=== PATIENT | male | born 1940 | race Caucasian/White ===

== ENCOUNTER → 2016-05-18 | Outpatient (CLI) | payer OTHER ==
[~2016-05-18] MED LIST: ACET-1311 PO; AMLO-114 PO; CARV6.252 PO; CITA10TA8 PO; FINA5TAB PO; LEVE500T13 PO; LISI5TAB PO; MULT-190 PO; PRLSR20 PO; SENN1TAB65 PO; SIMV20TA5 PO
== END ==
LOC: C.LABCC 07:58
PROVIDERS: ATTEND Internal Medicine
DX: G40.909 Epilepsy, unspecified, not intractable, without status epilepticus (principal)

== ENCOUNTER 2016-07-08 00:58 | Emergency (ER) | payer OTHER ==
[~2016-07-08] VITALS: Ht 157.5 cm; Wt 65.5 kg
--- NOTE | 2016-07-08 01:25 | EMERGENCY ROOM VISIT NOTE ---
History Report prepared by Rosanne: Sydney Gomez Under the Supervision of: Ofelia StrangeO. First contact with patient: 01:09 Chief Complaint: SEIZURE Stated Complaint: SEIZURE History of Present Illness The patient is a 76 year old male who presents to the Emergency Room with complaints of an episode of a seizure beginning just [employer]. The patient states that he was going to the bathroom at [facility] and when he went to sit down he fell down. Per nursing staff the patient has a history of seizures and dementia. He complains of nose pain. HPI limited secondary to dementia. Source of History: patient, nursing staff History Limited By: dementia Onset: just [employer] Position: other (global) Quality: other (seizure) Timing: other (episode) Note: Pt complains of nose pain. Review of Systems See HPI for pertinent positives and negatives. ROS limited secondary to dementia. Past Medical & Surgical Medical Problems: (1) Dementia (2) Seizure Family History No pertinent family history stated. Social History Alcohol Use: none Housing Status: [facility] Occupation Status: retired Current/Historical Medications Scheduled Amlodipine (Norvasc), 10 MG PO DAILY Carvedilol (Coreg), 6.25 MG PO BID Citalopram Hydrobromide (Celexa), 10 MG PO DAILY Finasteride (Proscar), 5 MG PO DAILY Levetiracetam (Keppra), 500 MG PO BID Lisinopril (Prinivil), 5 MG PO DAILY Ocuvite Preservision (Ocuvite Preservision), 1 TAB PO DAILY Omeprazole (Prilosec), 20 MG PO DAILY Sennosides-Docusate Sodium (Senna Plus), 2 TABS PO BID Simvastatin (Zocor), 20 MG PO QPM Scheduled PRN Acetaminophen (Tylenol), 650 MG PO Q6 PRN for Pain Allergies Coded Allergies: No Known Allergies (Unverified , 07/08/16) Physical Exam Vital Signs Date Time Temp Pulse Resp B/P Pulse Ox O2 Delivery O2 Flow Rate FiO2 07/08/16 02:32 95 19 152/72 98 Room Air 07/08/16 01:51 97 Room Air 07/08/16 01:48 36.3 79 20 150/91 97 Room Air 07/08/16 01:24 36.3 79 20 150/91 97 Room Air 07/08/16 01:10 69 Physical Exam GENERAL: Awake, alert, well-appearing, in no distress HENT: Oropharynx unremarkable. Mild tenderness to the nasal bridge with dried blood in the nasopharynx bilaterally. EYES: Normal conjunctiva. Sclera non-icteric. NECK: Supple. No nuchal rigidity. FROM. No JVD. Nontender. RESPIRATORY: Clear to auscultation. CARDIAC: Regular rate, normal rhythm. Extremities warm and well perfused. Pulses equal. ABDOMEN: Soft, non-distended. No tenderness to palpation. No rebound or guarding. No masses. RECTAL: Deferred. MUSCULOSKELETAL: Chest examination reveals no tenderness. The back is symmetrical on inspection without obvious abnormality. There is no CVA tenderness to palpation. No joint edema. LOWER EXTREMITIES: Calves are equal size bilaterally and non-tender. No edema. No discoloration. NEURO: Normal sensorium. No sensory or motor deficits noted. Alert but demented. SKIN: No rash or jaundice noted. Small superficial laceration measuring 1cm on the left thumb. Medical Decision & Procedures ER Provider Diagnostic Interpretation: Radiology results as stated below per my review and radiologist interpretation CT HEAD: No ICH, Mass effect, or midline shift. Large zone of encephalomalacia involving the right temporal and parietal lobe is compatible with chronic right MCA territory infarct. Blanco-white differentiation otherwise preserved. There is ex vacuo enlargement of the right lateral ventricle. There is intracranial atherosclerosis. There is no evidence of skull fracture. There are acute traumatic fractures through the anterior and posterior miller of the left maxillary sinus. There is a fracture through the left zygomatic arch, acuity indeterminate. The left maxillary sinus is filled with blood. There is mucosal thickening in the ethmoid air cells. The mastoid air cells are clear. CT C SPINE: There is severe spondylosis of the cervical spine. There is normal lordosis. Vertebral body heights are maintained. There is no evidence of acute fracture or subluxation. There is severe degenerative change at the anterior C1-C2 articulation with regional chondrocalcinosis. There is moderate to severe degenerative disc disease from C3 through the upper thoracic spine with disc height loss, degenerative endplate changes, and anterior and posterior endplate osteophytes. There is multilevel facet arthrosis and uncovertebral joint hypertrophy. Facet arthropathy is greater on the right side due to levoconvex curvature of the vertical spine. There is anterolisthesis of C3 measuring 3mm and anterolisthesis of C4 measuring 3mm. There is degenerative ankylosis of C6 and C7 across the disc space. There is no prevertebral soft tissue swelling. Hypoattenuating nodules are noted in the thyroid. The lung apices are clear. Laboratory Results 07/08/16 01:00 Red Blood Count 4.41, Mean Corpuscular Volume 85.7, Mean Corpuscular Hemoglobin 27.9, Mean Corpuscular Hemoglobin Concent 32.5, Mean Platelet Volume 11.4, Neutrophils (%) (Auto) 72.4, Lymphocytes (%) (Auto) 14.9, Monocytes (%) (Auto) 10.8, Eosinophils (%) (Auto) 1.3, Basophils (%) (Auto) 0.3, Neutrophils # (Auto ) 5.10, Lymphocytes # (Auto) 1.05, Monocytes # (Auto) 0.76, Eosinophils # (Auto ) 0.09, Basophils # (Auto) 0.02 07/08/16 01:00 Test 07/08/16 01:00 07/08/16 01:34 07/08/16 01:36 White Blood Count 7.04 K/uL (4.8-10.8) Red Blood Count 4.41 M/uL (4.7-6.1) Hemoglobin 12.3 g/dL (14.0-18.0) Hematocrit 37.8 % (42-52) Mean Corpuscular Volume 85.7 fL (80-100) Mean Corpuscular Hemoglobin 27.9 pg (25-34) Mean Corpuscular Hemoglobin Concent 32.5 g/dl (32-36) Platelet Count 214 K/uL (130-400) Mean Platelet Volume 11.4 fL (7.4-10.4) Neutrophils (%) (Auto) 72.4 % Lymphocytes (%) (Auto) 14.9 % Monocytes (%) (Auto) 10.8 % Eosinophils (%) (Auto) 1.3 % Basophils (%) (Auto) 0.3 % Neutrophils # (Auto) 5.10 K/uL (1.4-6.5) Lymphocytes # (Auto) 1.05 K/uL (1.2-3.4) Monocytes # (Auto) 0.76 K/uL (0.11-0.59) Eosinophils # (Auto) 0.09 K/uL (0-0.5) Basophils # (Auto) 0.02 K/uL (0-0.2) RDW Standard Deviation 46.7 fL (36.4-46.3) RDW Coefficient of Variation 14.9 % (11.5-14.5) Immature Granulocyte % (Auto) 0.3 % Immature Granulocyte # (Auto) 0.02 K/uL (0.00-0.02) Prothrombin Time 10.0 SECONDS (9.0-12.0) Prothromb Time International Ratio 0.9 (0.9-1.1) Activated Partial Thromboplast Time 22.1 SECONDS (21.0-31.0) Partial Thromboplastin Ratio 0.9 Anion Gap 7.0 mmol/L (3-11) Estimated GFR () 61.4 Estimated GFR (Non- 53.0 BUN/Creatinine Ratio 20.0 (10-20) Calcium Level 10.2 mg/dl (8.5-10.1) Magnesium Level 2.4 mg/dl (1.8-2.4) Bedside Glucose 116 mg/dl (70-99) Bedside Troponin I 0.010 ng/ml (0-0.045) Laboratory results reviewed by me Procedure Location: left thumb Total length: 1cm Complexity: simple Superficial 1cm thumb laceration was repaired using Dermabond. Patient tolerated procedure well. ECG Indication: other (seizure) Rate (beats per minute): 65 Rhythm: normal sinus Findings: T-wave inversion (Lateral), other (Nonspecific ST wave changes in precordium) ED Course 0109: The patient was evaluated in room B2. A complete history and physical exam was performed. 0231: I reevaluated the patient. He is resting and in no distress. He is non- focal. 0243: I reevaluated the patient. Discussed results and discharge instructions: He verbalized understanding and agreement. The patient is ready for discharge. Medical Decision Differential diagnoses include seizure, closed head injury, nasal bone fracture , metabolic derangement, skin laceration, early dementia. Repeat examination this patient is resting in no distress at 2:40 AM. Patient had Dermabond placed to the left thumb superficial laceration. Patient has no evidence of seizure throughout emergency department evaluation and no obvious intracranial process on CT. Impression Primary Impression: Closed head injury Additional Impressions: Laceration of thumb, left Dementia Scribe Attestation The scribe's documentation has been prepared under my direction and personally reviewed by me in its entirety. I confirm that the note above accurately reflects all work, treatment, procedures, and medical decision making performed by me. Departure Information Dispostion Home / Self-Care Referrals [facility] (PCP) Patient Instructions ED Head Injury Closed, ED Laceration All, My [facility] Additional Instructions Follow-up with your physician. Return for any seizure activity or any concerns. Problem Qualifiers Primary Impression: Closed head injury Encounter type: initial encounter Qualified Codes: S09.90XA - Unspecified injury of head, initial encounter Additional Impressions: Laceration of thumb, left Encounter type: initial encounter Qualified Codes: S61.012A - Laceration without foreign body of left thumb without damage to nail, initial encounter Dementia Dementia type: unspecified type Dementia behavioral disturbance: without behavioral disturbance Qualified Codes: F03.90 - Unspecified dementia without behavioral disturbance
[2016-07-08 01:38] LABS: BASO % 0.3 %; BASO ABS # 0.02 K/uL (0-0.2); COMPLETE YES; EOS % 1.3 %; HEMATOCRIT 37.8 % (42-52); IG% 0.3 %; LYMPH % 14.9 %; LYMPH ABS # 1.05 K/uL (1.2-3.4); MEAN CELL VOLUME 85.7 fL (80-100); MEAN CORPUSCULAR HEMOGLOBIN 27.9 pg (25-34); MEAN CORPUSCULAR HGB CONC 32.5 g/dl (32-36); MEAN PLATELET VOLUME 11.4 fL (7.4-10.4); MONO % 10.8 %; NEUT % 72.4 %; PLATELET COUNT 214 K/uL (130-400); RED BLOOD COUNT 4.41 M/uL (4.7-6.1); WHITE BLOOD COUNT 7.04 K/uL (4.8-10.8)
[2016-07-08 01:47] LABS: BLOOD UREA NITROGEN 26 mg/dl (7-18); CALCIUM 10.2 mg/dl (8.5-10.1); CARBON DIOXIDE 25 mmol/L (21-32); CHLORIDE 110 mmol/L (98-107); GLUCOSE 120 mg/dl (70-99); MAGNESIUM 2.4 mg/dl (1.8-2.4); POTASSIUM 4.5 mmol/L (3.5-5.1); SODIUM 142 mmol/L (136-145)
[2016-07-08 01:48] VITALS: TEMP 36.3; Ht 157.5 cm; Wt 65.5 kg
[2016-07-08 01:49] LABS: INR 0.9 (0.9-1.1); PARTIAL THROMBOPLASTIN RATIO 0.9
[2016-07-08 01:51] VITALS: O2SAT 97
[2016-07-08] MEDS ORDERED: AMLO-114 PO (02:00)
[2016-07-08] MEDS ORDERED: CARV6.252 PO (02:01)
[2016-07-08] MEDS ORDERED: CITA10TA8 PO (02:01)
[2016-07-08] MEDS ORDERED: LISI5TAB PO (02:02)
[2016-07-08] MEDS ORDERED: PRLSR20 PO (02:02)
[2016-07-08] MEDS ORDERED: LEVE500T13 PO (02:05)
[2016-07-08] MEDS ORDERED: FINA5TAB PO (02:05)
[2016-07-08] MEDS ORDERED: SIMV20TA5 PO (02:08)
[2016-07-08] MEDS ORDERED: MULT-190 PO (02:08)
[2016-07-08] MEDS ORDERED: SENN1TAB65 PO (02:08)
[2016-07-08] MEDS ORDERED: ACET-1311 PO (02:09)
[2016-07-08 02:32] VITALS: BP 152/72; PULSE 95; O2SAT 98
--- NOTE | 2016-07-08 06:55 | DIAGNOSTIC IMAGING REPORT ---
HEAD CT NONCONTRAST CT DOSE: HISTORY: Trauma seizure, head trauma TECHNIQUE: Multiaxial CT images of the head were performed without the use of intravenous contrast. Comparison: 11/06/2012 Findings: Fracture anterior and posterior aspect left maxillary sinus. Possible fracture left zygomatic arch and medial wall left maxillary sinus. Old right cerebral infarct. Mild chronic small vessel change of aging. No acute intracranial hemorrhage. The calvarium and skull base are intact. The ventricles and sulci are within normal limits. There is no mass, hematoma, midline shift, or acute infarct. Impression: 1. Old right cerebral infarct. 2. No acute intracranial abnormality. 3. Multifocal fracture left maxillary sinus as well as left zygomatic arch Electronically signed by: Arvin Slater M.D. 07/08/2016 6:53 AM Dictated Date/Time: 07/08/2016 6:48 AM
--- NOTE | 2016-07-08 08:05 | DIAGNOSTIC IMAGING REPORT ---
CERVICAL SPINE CT CT DOSE: 1119.95 mGy.cm HISTORY: Trauma trauma after [facility] TECHNIQUE: Multiaxial CT images of the cervical spine were performed and reformatted in the sagittal and coronal plane without the use of contrast. COMPARISON: None. FINDINGS: Severe degenerative change throughout the entire cervical region. Mild cervical scoliosis. No evidence for an acute compression deformity. No acute abnormality posterior arch. His note is made fractures of the left maxillary sinus region. IMPRESSION: Severe degenerative change of the cervical spine. No acute process. Fractures left maxillary sinus/facial region which have been described previously. CT of the maxillofacial region is suggested if this has not been performed Electronically signed by: Arvin Slater M.D. 07/08/2016 8:03 AM Dictated Date/Time: 07/08/2016 8:00 AM
== END 2016-07-08 03:10 | disposition home or self-care (01) ==
LOC: EDBD 00:58 → C.EDB 01:00
DX: S09.90XA Unspecified injury of head, initial encounter (principal); S61.012A Laceration without foreign body of left thumb without damage to nail, initial encounter; W19.XXXA Unspecified fall, initial encounter; G40.909 Epilepsy, unspecified, not intractable, without status epilepticus; F03.90 Unspecified dementia, unspecified severity, without behavioral disturbance, psychotic disturbance, mood disturbance, and anxiety; Z79.899 Other long term (current) drug therapy

== ENCOUNTER → 2016-08-23 | Outpatient (CLI) | payer OTHER ==
[2016-08-23 08:18] LABS: HEMATOCRIT 38.1 % (42-52); MEAN CELL VOLUME 88.6 fL (80-100); MEAN CORPUSCULAR HEMOGLOBIN 28.1 pg (25-34); MEAN CORPUSCULAR HGB CONC 31.8 g/dl (32-36); MEAN PLATELET VOLUME 11.9 fL (7.4-10.4); PLATELET COUNT 232 K/uL (130-400); WHITE BLOOD COUNT 5.64 K/uL (4.8-10.8)
[2016-08-23 08:28] LABS: ALB/GLOB RATIO 0.9 (0.9-2); ALT/SGPT 28 U/L (12-78); BLOOD UREA NITROGEN 19 mg/dl (7-18); BUN/CREATININE RATIO 20.5 (10-20); CARBON DIOXIDE 22 mmol/L (21-32); CHLORIDE 110 mmol/L (98-107); CHOLESTEROL 138 mg/dl (0-200); CHOLESTEROL/HDL RATIO 3.5; CREATININE 0.94 mg/dl (0.60-1.40); GLUCOSE 99 mg/dl (70-99); HDL CHOLESTEROL 40 mg/dl; LDL CHOLESTEROL CALCULATED 64 mg/dl; POTASSIUM 4.4 mmol/L (3.5-5.1); SODIUM 142 mmol/L (136-145); TRIGLYCERIDES 171 mg/dl (0-150); VERY LOW DENSITY LIPOPROT CALC 34 mg/dl
[2016-08-23 08:38] LABS: ALKALINE PHOSPHATASE 105 U/L (45-117); AST/SGOT 20 U/L (15-37)
[2016-08-23 08:39] LABS: CALCIUM 10.9 mg/dl (8.5-10.1)
== END ==
LOC: C.LABCC 08:00
PROVIDERS: ATTEND Internal Medicine
DX: E78.5 Hyperlipidemia, unspecified (principal); I10 Essential (primary) hypertension; R56.9 Unspecified convulsions

== ENCOUNTER → 2016-10-20 | Outpatient (CLI) | payer OTHER | LOC: C.LABCC 07:52 | PROVIDERS: ATTEND Internal Medicine | DX: G40.909 Epilepsy, unspecified, not intractable, without status epilepticus (principal) ==

== ENCOUNTER → 2016-11-03 | Outpatient (CLI) | payer OTHER | LOC: C.LABCC 08:04 | PROVIDERS: ATTEND Internal Medicine | DX: G40.909 Epilepsy, unspecified, not intractable, without status epilepticus (principal) ==

== ENCOUNTER → 2016-12-24 | Outpatient (CLI) | payer OTHER ==
[2016-12-24 08:30] LABS: BASO % 0.6 %; BASO ABS # 0.04 K/uL (0-0.2); COMPLETE YES; EOS % 1.3 %; HEMATOCRIT 39.7 % (42-52); IG% 0.1 %; LYMPH % 13.5 %; LYMPH ABS # 0.97 K/uL (1.2-3.4); MEAN CELL VOLUME 88.6 fL (80-100); MEAN CORPUSCULAR HEMOGLOBIN 26.6 pg (25-34); MEAN PLATELET VOLUME 11.7 fL (7.4-10.4); MONO % 11.4 %; NEUT % 73.1 %; PLATELET COUNT 257 K/uL (130-400); RED BLOOD COUNT 4.48 M/uL (4.7-6.1)
[2016-12-24 08:39] LABS: ALT/SGPT 23 U/L (12-78); BLOOD UREA NITROGEN 20 mg/dl (7-18); BUN/CREATININE RATIO 20.2 (10-20); CALCIUM 10.8 mg/dl (8.5-10.1); CARBON DIOXIDE 22 mmol/L (21-32); CHLORIDE 111 mmol/L (98-107); GLUCOSE 98 mg/dl (70-99); POTASSIUM 4.7 mmol/L (3.5-5.1); SODIUM 141 mmol/L (136-145)
[2016-12-24 08:50] LABS: ALB/GLOB RATIO 0.8 (0.9-2); ALKALINE PHOSPHATASE 111 U/L (45-117); AST/SGOT 16 U/L (15-37)
== END ==
LOC: C.LABCC 08:07
PROVIDERS: ATTEND Internal Medicine
DX: R41.82 Altered mental status, unspecified (principal)

== ENCOUNTER → 2017-02-08 | Outpatient (CLI) | payer OTHER ==
[2017-02-08 08:01] LABS: BASO % 0.6 %; BASO ABS # 0.04 K/uL (0-0.2); COMPLETE YES; EOS % 1.1 %; HEMATOCRIT 39.4 % (42-52); IG% 0.1 %; LYMPH % 11.8 %; LYMPH ABS # 0.82 K/uL (1.2-3.4); MEAN CELL VOLUME 88.3 fL (80-100); MEAN CORPUSCULAR HEMOGLOBIN 26.7 pg (25-34); MEAN CORPUSCULAR HGB CONC 30.2 g/dl (32-36); MEAN PLATELET VOLUME 11.8 fL (7.4-10.4); MONO % 10.5 %; NEUT % 75.9 %; PLATELET COUNT 246 K/uL (130-400); RED BLOOD COUNT 4.46 M/uL (4.7-6.1); WHITE BLOOD COUNT 6.97 K/uL (4.8-10.8)
[2017-02-08 08:07] LABS: ALT/SGPT 22 U/L (12-78); AST/SGOT 14 U/L (15-37); BLOOD UREA NITROGEN 25 mg/dl (7-18); BUN/CREATININE RATIO 21.7 (10-20); CALCIUM 10.6 mg/dl (8.5-10.1); CARBON DIOXIDE 22 mmol/L (21-32); CHLORIDE 109 mmol/L (98-107); CREATININE 1.15 mg/dl (0.60-1.40); GLUCOSE 134 mg/dl (70-99); POTASSIUM 4.7 mmol/L (3.5-5.1); SODIUM 138 mmol/L (136-145)
[2017-02-08 08:17] LABS: ALB/GLOB RATIO 0.9 (0.9-2); ALKALINE PHOSPHATASE 110 U/L (45-117)
== END ==
LOC: C.LABCC 07:42
PROVIDERS: ATTEND Internal Medicine
DX: R56.9 Unspecified convulsions (principal); W19.XXXA Unspecified fall, initial encounter

== ENCOUNTER 2017-04-21 05:33 | Emergency (ER) | payer OTHER ==
[~2017-04-21 05:33] MED LIST changes: -AMLO-110 PO; -AMLO-114 PO; +AMLO10TA3 PO; -CHOL2000 PO; -LEVE250T PO; -TRAM-10 PO
[2017-04-21 05:37] VITALS: TEMP 36.3
[2017-04-21] MEDS ORDERED: AMLO5TAB3 PO (06:00)
--- NOTE | 2017-04-21 06:01 | EMERGENCY ROOM VISIT NOTE ---
History First contact with patient: 05:40 Chief Complaint: FALL Stated Complaint: FALL/SHOULDER PAIN History of Present Illness The patient is a 77 year old male who presents to the Emergency Room for evaluation of left shoulder pain after a fall. The patient is a resident at [facility] in the dementia unit. The patient reportedly fell 3 hours prior to arrival. Following that, the patient was complaining that he was not able to move his left arm. He is now complaining of left shoulder pain. He has no further complaints. History is significantly limited due to patient's dementia. Review of Systems A complete 10 point review of systems was reviewed with the patient with pertinent positives and negatives as per history of present illness. All else were negative. Past Medical/Surgical History Medical Problems: (1) Dementia (2) Seizure Social History Smoking Status: Never Smoker Alcohol Use: none Housing Status: [facility] Occupation Status: retired Current/Historical Medications Scheduled Amlodipine (Norvasc), 5 MG PO DAILY Carvedilol (Coreg), 6.25 MG PO BID Cholecalciferol (Vitamin D3), 2,000 UNITS PO DAILY Citalopram Hydrobromide (Celexa), 10 MG PO QPM Finasteride (Proscar), 5 MG PO QAM Levetiracetam (Keppra), 500 MG PO BID Levetiracetam (Keppra), 250 MG PO DAILY@ 1230 Lisinopril (Prinivil), 5 MG PO DAILY Ocuvite Preservision (Ocuvite Preservision), 1 TAB PO DAILY Omeprazole (Prilosec), 20 MG PO DAILY Sennosides-Docusate Sodium (Senna Plus), 2 TABS PO BID Simvastatin (Zocor), 20 MG PO QPM Scheduled PRN Acetaminophen (Tylenol), 650 MG PO Q6 PRN for Pain Physical Exam Vital Signs Date Time Temp Pulse Resp B/P (MAP) Pulse Ox O2 Delivery O2 Flow Rate FiO2 04/21/17 07:55 80 18 162/74 04/21/17 06:15 71 18 135/76 99 Room Air 04/21/17 05:37 36.3 70 18 140/73 98 Room Air Physical Exam VITALS: Vitals are noted on the nurse's note and reviewed by myself. Vital signs stable. GENERAL: This is a 77-year-old male, in no acute distress, nondiaphoretic, well- developed well-nourished. SKIN: The skin was without erythema, edema, or bruising. HEAD: Normocephalic atraumatic. EARS: External auditory canals clear, tympanic membranes pearly vazquez without erythema or effusion bilaterally. No hemotympanum. EYES: Pupils equal round and reactive to light and accommodation. Extraocular movements intact. NECK: Supple without nuchal rigidity. Cervical spine is nontender. HEART: Regular rate and rhythm without murmurs gallops or rubs. LUNGS: Clear to auscultation bilaterally without wheezes, rales or rhonchi. MUSCULOSKELETAL: Tenderness to palpation of the proximal humerus. Limited range of motion secondary to patient discomfort. No tenderness of the elbow, forearm or wrist. No tenderness of the distal clavicle. NEURO: Patient was alert and oriented to person only. Medical Decision & Procedures ER Provider Diagnostic Interpretation: CT HEAD: No evidence of acute infarct, hemorrhage, mass or edema. Remote infarct within the right MCA territory. Chronic small vessel ischemic disease and senescent changes. Minimal mucosal thickening of the paranasal sinuses. No acute osseous abnormality. Radiologist: Clya Valle MD CT C SPINE: Multilevel degenerative changes. No acute fracture or traumatic malalignment. Radiologist: Clay Valle MD CT LEFT SHOULDER: Acute impacted fracture of the left humeral neck. The humeral head remains articulate within the glenoid. There is marked degenerative changes. No other fracture identified. Radiologist: Clay Valle MD Medical Decision Differential diagnosis includes humerus fracture, clavicle fracture, shoulder dislocation, among others. The patient was evaluated as above. CT of the head, neck and left shoulder were performed and read by statrad and reveal a fracture of the left humerus as described above. CTs of the head and neck were normal. Patient was placed in an arm sling. He will follow-up with orthopedics. He was discharged back to [facility] in good condition. The patient was independently evaluated by Dr. Lopez, ED attending physician, who agreed with my assessment and treatment plan. Medication Reconcilliation Current Medication List: was personally reviewed by me Blood Pressure Screening Patient's blood pressure: Normal blood pressure Impression Primary Impression: Closed left humeral fracture Departure Information Dispostion Home / Self-Care Condition GOOD Referrals [facility] (PCP) Bala Coleman MD Patient Instructions [facility] Additional Instructions You have been treated in the Emergency Department for a Shoulder fracture. For pain control, you can use the following [id number] medicines (if >12 yo): - Regular strength (325mg/tab) Tylenol (acetaminophen) 2 tabs every 4-6 hours as needed. Do not exceed 12 tablets in a 24 hour period. Avoid taking more than 4 grams (4000 mg) of Tylenol per day. This includes any other sources of acetaminophen you may take on a regular basis. - Regular strength (200 mg/tab) Advil (ibuprofen) 1-2 tabs every 4-6 hours as needed. Do not exceed a dose of 3200 mg per day. If this is a recent injury (<24 hrs), ice can be applied to the area of pain for the first 3 days to help decrease pain and inflammation. You have been provided the number for an Orthopaedic Surgeon. You should call this number as soon as possible to establish a follow-up visit from today's Emergency Department visit. Return to the Emergency Department if your current symptoms worsen despite treatment course outlined above, or if you develop any of the following symptoms : intractable pain despite aforementioned treatment course or new onset of numbness or tingling of the arm. Problem Qualifiers Primary Impression: Closed left humeral fracture Encounter type: initial encounter
[2017-04-21] MEDS ORDERED: CARV6.252 PO (06:02)
[2017-04-21] MEDS ORDERED: LEVE250T PO (06:06)
[2017-04-21] MEDS ORDERED: CHOL2000 PO (06:12)
[2017-04-21 06:15] VITALS: O2SAT 99
--- NOTE | 2017-04-21 07:13 | DIAGNOSTIC IMAGING REPORT ---
HEAD CT NONCONTRAST CT DOSE: HISTORY: fall TECHNIQUE: Multiaxial CT images of the head were performed without the use of intravenous contrast. Automated exposure control was utilized for this study. A dose lowering technique was utilized adhering to the principles of ALARA. Comparison: Head CT 07/08/2016. Findings: The paranasal sinuses and mastoid air cells are clear. The calvarium and skull base are intact. There is no mass, hematoma, midline shift, acute infarct. White matter hypodensity is nonspecific but suggestive of microvascular ischemic change. The ventricles and sulci demonstrate mild age-related involutional changes. Old right MCA territory infarct. This remains unchanged. Impression: No significant change compared to the prior study. No acute intracranial abnormality. Electronically signed by: Fernie Schofield M.D. 04/21/2017 7:12 AM Dictated Date/Time: 04/21/2017 7:07 AM
--- NOTE | 2017-04-21 07:17 | DIAGNOSTIC IMAGING REPORT ---
CERVICAL SPINE CT CT DOSE: 1106.69 mGy.cm HISTORY: Neck pain. fall TECHNIQUE: Multiaxial CT images of the cervical spine were performed and reformatted in the sagittal and coronal plane without the use of contrast. A dose lowering technique was utilized adhering to the principles of ALARA. COMPARISON: None. FINDINGS: No fractures within the cervical spine. 2 mm of anterolisthesis of C3 on C4 and C4-C5. This is likely due to long-standing degenerative change. Moderate to severe degenerative disc disease and facet osteoarthritis throughout the majority of the cervical spine. Levoscoliosis. No pneumothorax. IMPRESSION: No fractures within the cervical spine. Advanced degenerative changes. Electronically signed by: Fernie Schofield M.D. 04/21/2017 7:16 AM Dictated Date/Time: 04/21/2017 7:12 AM
--- NOTE | 2017-04-21 07:23 | EMERGENCY ROOM VISIT NOTE ---
ED Visit Note First contact with patient: 05:40 I saw this patient in conjunction with Milka Wheeler PA-C. I agree with her decision making and treatment plan.
--- NOTE | 2017-04-21 07:44 | DIAGNOSTIC IMAGING REPORT ---
CT OF THE LEFT SHOULDER WITHOUT CONTRAST CLINICAL HISTORY: Left shoulder pain following fall. COMPARISON STUDY: No previous studies for comparison. TECHNIQUE: Axial images of the left shoulder obtained without IV contrast. Sagittal and coronal reconstructions were viewed. FINDINGS: Alignment of the left acromioclavicular and glenohumeral joints is anatomic. Joint space narrowing with osteophytosis of the left glenohumeral joint is noted. There is subchondral sclerosis. The findings are consistent with severe osteoarthritis of the left glenohumeral joint. There is a markedly comminuted, moderately displaced impacted left humeral neck fracture which extends into the left humeral head. No additional acute fractures are identified on this examination. There is associated edema and hemorrhage within the adjacent musculature. There is mild groundglass opacity within visualized portions of the left upper lobe. Old left-sided rib fractures are noted. There is no left pneumothorax. IMPRESSION: Acute moderately displaced markedly comminuted impacted left humeral neck fracture which extends into the left humeral head. Anatomic alignment of left glenohumeral joint with severe osteoarthritis. Associated soft tissue/intramuscular edema and hemorrhage. Electronically signed by: Kale Alexander M.D. 04/21/2017 7:42 AM Dictated Date/Time: 04/21/2017 7:37 AM
[2017-04-21 07:55] VITALS: BP 162/74; PULSE 80
[2017-04-22] MEDS ORDERED: TRAM-10 PO (13:25)
[2017-04-23] MEDS ORDERED: ACET-1311 PO (15:12)
== END 2017-04-21 08:32 | disposition home or self-care (01) ==
LOC: EDBD 05:33 → C.EDA 05:37
DX: S42.302A Unspecified fracture of shaft of humerus, left arm, initial encounter for closed fracture (principal); W19.XXXA Unspecified fall, initial encounter; Y92.129 Unspecified place in nursing home as the place of occurrence of the external cause; F03.90 Unspecified dementia, unspecified severity, without behavioral disturbance, psychotic disturbance, mood disturbance, and anxiety; G40.909 Epilepsy, unspecified, not intractable, without status epilepticus; Z79.899 Other long term (current) drug therapy

== ENCOUNTER → 2017-04-21 | Outpatient (CLI) | payer OTHER ==
[~2017-04-21] MED LIST changes: +AMLO-110 PO; +CHOL2000 PO; +LEVE250T PO; +TRAM-10 PO
== END | disposition home or self-care (01) ==
LOC: C.RDSM 13:50
PROVIDERS: ATTEND Orthopaedic Surgery
DX: T14.8XXA Other injury of unspecified body region, initial encounter (principal); X58.XXXA Exposure to other specified factors, initial encounter

== ENCOUNTER 2017-04-22 12:42 | Inpatient (IN) | payer OTHER ==
[~2017-04-22] VITALS: Ht 167.6 cm; Wt 80.5 kg
[~2017-04-22 12:42] MED LIST changes: -AMLO10TA3 PO; +AMLO5TAB3 PO; +CHOL2000 PO; +LEVE250T PO
--- NOTE | 2017-04-22 13:16 | EMERGENCY ROOM VISIT NOTE ---
History Report prepared by Rosanne: Ophelia Bullock Under the Supervision of: Dr. Gio Grossman D.O. First contact with patient: 12:55 Chief Complaint: ALTERED MENTAL STATUS Stated Complaint: AMS History of Present Illness The patient is a 77 year old male who presents to the Emergency Room with complaints of a persistent altered mental status. The patient was seen at the Emergency Department yesterday for shoulder pain, secondary to a fall. HPI limited due to a history of dementia and AMS. Source of History: patient, transfer records History Limited By: AMS, dementia Position: other (global) Quality: other (AMS) Timing: other (persistent) Review of Systems See HPI for pertinent positives & negatives. A total of 10 systems reviewed and were otherwise negative. Past Medical & Surgical Medical Problems: (1) Dementia (2) Seizure Family History Patient reports no known family medical history. Social History Smoking Status: Unknown if Ever Smoked Alcohol Use: none Housing Status: custodial Occupation Status: retired Current/Historical Medications Scheduled Amlodipine (Norvasc), 5 MG PO DAILY Carvedilol (Coreg), 6.25 MG PO BID Cholecalciferol (Vitamin D3), 2,000 UNITS PO DAILY Citalopram Hydrobromide (Celexa), 10 MG PO QPM Finasteride (Proscar), 5 MG PO QAM Levetiracetam (Keppra), 500 MG PO BID Levetiracetam (Keppra), 250 MG PO DAILY@ 1230 Lisinopril (Prinivil), 5 MG PO DAILY Ocuvite Preservision (Ocuvite Preservision), 1 TAB PO DAILY Omeprazole (Prilosec), 20 MG PO DAILY Sennosides-Docusate Sodium (Senna Plus), 2 TABS PO BID Simvastatin (Zocor), 20 MG PO QPM Scheduled PRN Acetaminophen (Tylenol), 650 MG PO Q6 PRN for Pain Tramadol (Ultram), 1-2 TAB PO Q6 PRN for Pain Allergies Coded Allergies: No Known Allergies (Unverified , 04/22/17) Physical Exam Vital Signs Date Time Temp Pulse Resp B/P (MAP) Pulse Ox O2 Delivery O2 Flow Rate FiO2 04/22/17 13:47 77 111/56 78 107/72 04/22/17 13:11 94 Room Air 04/22/17 13:11 94 Room Air 04/22/17 12:56 36.7 75 23 103/66 96 Room Air 04/22/17 12:49 75 Physical Exam GENERAL: Listless response to verbal commands, does not appear discomfortable.Patient is awake, alert, and in no acute distress. EYES: The conjunctivae are clear. The pupils are round and reactive. EARS, NOSE, MOUTH AND THROAT: The nose is without any evidence of any deformity. Mucous membranes are moist tongue is midline NECK: The neck is nontender and supple. RESPIRATORY: Normal respiratory effort is noted there is no evidence of wheezing rhonchi or rales CARDIOVASCULAR: Regular rate and rhythm noted there no murmurs rubs or gallops normal S1 normal S2 GASTROINTESTINAL: Mildly distended, but soft. No guarding or rigidity. Bowel sounds are present in all quadrants. Abdomen is nontender PELVIS: The Pelvis is stable. No tenderness to palpation is noted. BACK: No midline tenderness or or step-off noted range of motion in flexion extension as well as rotation no signs of muscle spasm noted MUSCULOSKELETAL/EXTREMITIES: No deformities or pain with testing of LE. Significant swelling and ecchymosis of left arm consistent with recent injury. Pedal edema bilaterally. There is no evidence of gross deformity full range of motion is noted in the hips and shoulders SKIN: There is no obvious evidence of any rash. There are no petechiae, pallor or cyanosis noted. NEUROLOGIC: Patient is awake alert and oriented but not of time and situation. Medical Decision & Procedures ER Provider Diagnostic Interpretation: Radiology results as stated below per my review and radiologist interpretation: SINGLE VIEW CHEST CLINICAL HISTORY: Weakness. Change in mental status. FINDINGS: An AP, portable, upright chest radiograph is obtained. No prior studies are available for comparison at the time of dictation. The examination is degraded by portable technique and patient rotation. The heart is enlarged. The pulmonary vasculature is noncongested. There are low lung volumes with bibasilar atelectasis. The lungs and pleural spaces are otherwise clear. No pneumothorax is seen. The skeletal structures are osteopenic. Advanced arthritic change is present in the shoulders. There is an impacted left humeral neck fracture. There are healed right posterior rib fractures. IMPRESSION: 1. Cardiomegaly with no acute cardiopulmonary abnormality. 2. Low lung volumes. 3. There is an impacted fracture of the left humeral neck. Electronically signed by: Darion Manjarrez M.D. 04/22/2017 1:43 PM Dictated Date/Time: 04/22/2017 1:42 PM HEAD WITHOUT CONTRAST (CT) CLINICAL HISTORY: 77 years-old Male presenting with EVALUATE ALTERED MENTAL STATUS/WEAKNESS. TECHNIQUE: Multidetector CT imaging of the head was performed without the use of intravenous contrast. IV contrast: None. A dose lowering technique was used consistent with the principles of ALARA (as low as reasonably achievable). COMPARISON: 04/21/2017. CT DOSE (mGy.cm): The estimated cumulative dose is 1074.96 mGy.cm. FINDINGS: [employer] topogram: Unremarkable. Proportional ventricular and sulcal prominence, likely age-related parenchymal volume loss. Periventricular and subcortical white matter hypoattenuation, nonspecific but likely indicative of chronic small vessel ischemic change. Cystic encephalomalacia and gliosis extensively within the right temporal lobe extending into the right parietal lobe consistent with chronic right MCA territory infarct, unchanged from prior. No mass effect or midline shift. No hemorrhage or acute territorial infarct. No extra-axial fluid collection. Paranasal sinuses and mastoid air cells clear. Calvarium intact. IMPRESSION: 1. No significant change compared to the prior study. No acute intracranial abnormality. Electronically signed by: Bala Armando M.D. 04/22/2017 2:11 PM Dictated Date/Time: 04/22/2017 2:05 PM Laboratory Results 04/22/17 13:45 Red Blood Count 3.55, Mean Corpuscular Volume 87.6, Mean Corpuscular Hemoglobin 27.3, Mean Corpuscular Hemoglobin Concent 31.2, Mean Platelet Volume 11.6, Neutrophils (%) (Auto) 78.2, Lymphocytes (%) (Auto) 5.5, Monocytes (%) (Auto) 15.9, Eosinophils (%) (Auto) 0.0, Basophils (%) (Auto) 0.1, Neutrophils # (Auto ) 8.19, Lymphocytes # (Auto) 0.58, Monocytes # (Auto) 1.67, Eosinophils # (Auto ) 0.00, Basophils # (Auto) 0.01 04/22/17 13:45 Test 04/22/17 13:16 04/22/17 13:20 04/22/17 13:45 Bedside Glucose 188 mg/dl (70-99) Urine Color DK YELLOW Urine Appearance CLOUDY (CLEAR) Urine pH 5.0 (4.5-7.5) Urine Specific [place] 1.029 (1.000-1.030) Urine Protein TRACE (NEG) Urine Glucose (UA) NEG (NEG) Urine Ketones TRACE (NEG) Urine Occult Blood NEG (NEG) Urine Nitrite NEG (NEG) Urine Bilirubin NEG (NEG) Urine Urobilinogen NEG (NEG) Urine Leukocyte Esterase TRACE (NEG) Urine WBC (Auto) 1-5 /hpf (0-5) Urine RBC (Auto) 0-4 /hpf (0-4) Urine Hyaline Casts (Auto) 1-5 /lpf (0-5) Urine Epithelial Cells (Auto) >30 /lpf (0-5) Urine Bacteria (Auto) NEG (NEG) Urine Renal Epithelial Cells /lpf (0-5) Urine Crystals AMORPHOUS SEDIMENT (NONE Urine Pathogenic Casts /lpf (0) Urine Mucus PRESENT (NONE PRSENT) Urine Opiates Screen NEG (NEG) Urine Methadone, Qualitative NEG (NEG) Urine Barbiturates NEG (NEG) Urine Phencyclidine (PCP) Level NEG (NEG) Ur Amphetamine/Methamphetamine NEG (NEG) MDMA (Ecstasy) Screen NEG (NEG) Urine Benzodiazepines Screen NEG (NEG) Urine Cocaine Metabolite NEG (NEG) Urine Marijuana (THC) NEG (NEG) White Blood Count 10.48 K/uL (4.8-10.8) Red Blood Count 3.55 M/uL (4.7-6.1) Hemoglobin 9.7 g/dL (14.0-18.0) Hematocrit 31.1 % (42-52) Mean Corpuscular Volume 87.6 fL (80-100) Mean Corpuscular Hemoglobin 27.3 pg (25-34) Mean Corpuscular Hemoglobin Concent 31.2 g/dl (32-36) Platelet Count 239 K/uL (130-400) Mean Platelet Volume 11.6 fL (7.4-10.4) Neutrophils (%) (Auto) 78.2 % Lymphocytes (%) (Auto) 5.5 % Monocytes (%) (Auto) 15.9 % Eosinophils (%) (Auto) 0.0 % Basophils (%) (Auto) 0.1 % Neutrophils # (Auto) 8.19 K/uL (1.4-6.5) Lymphocytes # (Auto) 0.58 K/uL (1.2-3.4) Monocytes # (Auto) 1.67 K/uL (0.11-0.59) Eosinophils # (Auto) 0.00 K/uL (0-0.5) Basophils # (Auto) 0.01 K/uL (0-0.2) RDW Standard Deviation 50.4 fL (36.4-46.3) RDW Coefficient of Variation 15.7 % (11.5-14.5) Immature Granulocyte % (Auto) 0.3 % Immature Granulocyte # (Auto) 0.03 K/uL (0.00-0.02) Prothrombin Time 10.4 SECONDS (9.0-12.0) Prothromb Time International Ratio 1.0 (0.9-1.1) Activated Partial Thromboplast Time 22.2 SECONDS (21.0-31.0) Partial Thromboplastin Ratio 0.9 Anion Gap 6.0 mmol/L (3-11) Est Creatinine Clear Calc Drug Dose 25.0 ml/min Estimated GFR () 26.5 Estimated GFR (Non- 22.9 BUN/Creatinine Ratio 14.4 (10-20) Calcium Level 10.4 mg/dl (8.5-10.1) Magnesium Level 2.5 mg/dl (1.8-2.4) Total Bilirubin 1.0 mg/dl (0.2-1) Direct Bilirubin 0.2 mg/dl (0-0.2) Aspartate Amino Transf (AST/SGOT) 28 U/L (15-37) Alanine Aminotransferase (ALT/SGPT) 24 U/L (12-78) Alkaline Phosphatase 92 U/L (45-117) Total Creatine Kinase 392 U/L (39-308) Creatine Kinase MB 6.1 ng/ml (0.5-3.6) Creatine Kinase MB Ratio 1.6 (0-3.0) Troponin I 0.018 ng/ml (0-0.045) Total Protein 7.0 gm/dl (6.4-8.2) Albumin 3.1 gm/dl (3.4-5.0) Thyroid Stimulating Hormone (TSH) 1.690 uIu/ml (0.300-4.500) Laboratory results per my review. Medications Administered Medications (Trade) Dose Ordered Sig/Malick Route Start Time Stop Time Status Last Admin Dose Admin Sodium Chloride 1,000 ml @ 125 mls/hr Q8H STAT IV 04/22/17 14:52 04/22/17 22:51 04/22/17 14:52 125 MLS/HR Sodium Chloride 500 ml @ 999 mls/hr Q31M STAT IV 04/22/17 14:52 04/22/17 15:22 DC 04/22/17 14:52 999 MLS/HR ECG Indication: other (AMS) Rate (beats per minute): 75 Findings: no ectopy, other (Diffused anterior and lateral ST and T wave abnormalities noted) ED Course 1301: The patient was evaluated in room C12. A complete history and physical examination were performed. 1452: Ordered Sodium Chloride 1000ml @ 125mls/hr IV and Sodium Chloride 500ml @ 999mls/hr IV. 1458: I discussed the patient's case with HENRIK Hogue. The patient will be evaluated for further management. Medical Decision Prior records/ancillary studies reviewed and summarized above. Nursing notes reviewed. Additional history obtained from transfer papers. The patient's history was concerning for altered mental status. Differential diagnosis: Etiologies such as metabolic, infection, hypoglycemia, electrolyte abnormalities , cardiac sources, intracerebral event, toxicologic, neurologic, as well as others were entertained. The patient is a 77-year-old male who presented to the emergency department for altered mental status. The patient was at our facility recently after a fall. He had a very significant injury to his left shoulder with a fracture. This area appears to have significant swelling and ecchymosis. The patient also has a baseline dementia so it is unclear how much of his altered mental status is new. The patient was treated with IV fluids in the emergency department. I discussed the patient's laboratory and radiographic studies with him. I said discussed his case with the on-call [facility] hospitalist group. They've agreed to evaluate the patient in the emergency department for further management and disposition. Medication Reconcilliation Current Medication List: was personally reviewed by me Blood Pressure Screening Patient's blood pressure: Normal blood pressure Consults Time Called: [phone] Consulting Physician: HENRIK Hogue Returned Call: [phone] I discussed the patient's case with HENRIK Hogue. The patient will be evaluated for further management. Impression Primary Impression: Altered mental status Additional Impressions: Fall Anemia Acute CVST assoc w/ dehydration Left humeral fracture Scribe Attestation The scribe's documentation has been prepared under my direction and personally reviewed by me in its entirety. I confirm that the note above accurately reflects all work, treatment, procedures, and medical decision making performed by me. Departure Information Dispostion Being Evaluated By Hospitalist Referrals [place] (PCP) Forms HOME CARE DOCUMENTATION FORM, IMPORTANT VISIT INFORMATION Patient Instructions My [facility] [address] Health Problem Qualifiers Primary Impression: Altered mental status Altered mental status type: unspecified Qualified Codes: R41.82 - Altered mental status, unspecified Additional Impressions: Fall Encounter type: subsequent encounter Qualified Codes: W19.XXXD - Unspecified fall, subsequent encounter Anemia Anemia type: unspecified type Qualified Codes: D64.9 - Anemia, unspecified Left humeral fracture Encounter type: subsequent encounter Humerus Location: surgical neck Fracture type: closed Fracture morphology: unspecified fracture morphology Fracture alignment: displaced Fracture healing: with routine healing Qualified Codes: S42.212D - Unspecified displaced fracture of surgical neck of left humerus, subsequent encounter for fracture with routine healing
[2017-04-22] MEDS ORDERED: TRAM-10 PO (13:25)
--- NOTE | 2017-04-22 13:45 | DIAGNOSTIC IMAGING REPORT ---
SINGLE VIEW CHEST CLINICAL HISTORY: Weakness. Change in mental status. FINDINGS: An AP, portable, upright chest radiograph is obtained. No prior studies are available for comparison at the time of dictation. The examination is degraded by portable technique and patient rotation. The heart is enlarged. The pulmonary vasculature is noncongested. There are low lung volumes with bibasilar atelectasis. The lungs and pleural spaces are otherwise clear. No pneumothorax is seen. The skeletal structures are osteopenic. Advanced arthritic change is present in the shoulders. There is an impacted left humeral neck fracture. There are healed right posterior rib fractures. IMPRESSION: 1. Cardiomegaly with no acute cardiopulmonary abnormality. 2. Low lung volumes. 3. There is an impacted fracture of the left humeral neck. Electronically signed by: Darino Manjarrez M.D. 04/22/2017 1:43 PM Dictated Date/Time: 04/22/2017 1:42 PM
[2017-04-22 13:58] LABS: BASO % 0.1 %; BASO ABS # 0.01 K/uL (0-0.2); HEMATOCRIT 31.1 % (42-52); HEMOGLOBIN 9.7 g/dL (14.0-18.0); IG# 0.03 K/uL (0.00-0.02); LYMPH % 5.5 %; LYMPH ABS # 0.58 K/uL (1.2-3.4); MEAN CELL VOLUME 87.6 fL (80-100); MEAN CORPUSCULAR HEMOGLOBIN 27.3 pg (25-34); MEAN CORPUSCULAR HGB CONC 31.2 g/dl (32-36); MEAN PLATELET VOLUME 11.6 fL (7.4-10.4); MONO % 15.9 %; MONO ABS # 1.67 K/uL (0.11-0.59); NEUT % 78.2 %; NEUT ABS # 8.19 K/uL (1.4-6.5); PLATELET COUNT 239 K/uL (130-400); RED CELL DISTRIBUTION WIDTH CV 15.7 % (11.5-14.5); RED CELL DISTRIBUTION WIDTH SD 50.4 fL (36.4-46.3); WHITE BLOOD COUNT 10.48 K/uL (4.8-10.8)
[2017-04-22 14:09] LABS: PTT PATIENT 22.2 SECONDS (21.0-31.0)
--- NOTE | 2017-04-22 14:12 | DIAGNOSTIC IMAGING REPORT ---
HEAD WITHOUT CONTRAST (CT) CLINICAL HISTORY: 77 years-old Male presenting with EVALUATE ALTERED MENTAL STATUS/WEAKNESS. TECHNIQUE: Multidetector CT imaging of the head was performed without the use of intravenous contrast. IV contrast: None. A dose lowering technique was used consistent with the principles of ALARA (as low as reasonably achievable). COMPARISON: 04/21/2017. CT DOSE (mGy.cm): The estimated cumulative dose is 1074.96 mGy.cm. FINDINGS: [employer] topogram: Unremarkable. Proportional ventricular and sulcal prominence, likely age-related parenchymal volume loss. Periventricular and subcortical white matter hypoattenuation, nonspecific but likely indicative of chronic small vessel ischemic change. Cystic encephalomalacia and gliosis extensively within the right temporal lobe extending into the right parietal lobe consistent with chronic right MCA territory infarct, unchanged from prior. No mass effect or midline shift. No hemorrhage or acute territorial infarct. No extra-axial fluid collection. Paranasal sinuses and mastoid air cells clear. Calvarium intact. IMPRESSION: 1. No significant change compared to the prior study. No acute intracranial abnormality. Electronically signed by: Bala Armando M.D. 04/22/2017 2:11 PM Dictated Date/Time: 04/22/2017 2:05 PM
[2017-04-22 14:22] LABS: ALBUMIN 3.1 gm/dl (3.4-5.0); CALCIUM 10.4 mg/dl (8.5-10.1); CREATININE 2.59 mg/dl (0.60-1.40); POTASSIUM 4.8 mmol/L (3.5-5.1)
[2017-04-22 14:33] LABS: CKMB 6.1 ng/ml (0.5-3.6)
[2017-04-22] MEDS ORDERED: SODIUM CHLORIDE 0.9% 1000ML 1,000 ML IV STA (14:52)
[2017-04-22] MEDS ORDERED: SODIUM CHLORIDE 0.9% 500ML 500 ML IV STA (14:52)
[2017-04-22] MEDS ORDERED: ALUMINUM/MAGNESIUM/SIMETH (MAALOX MAX) 30 ML UDC PO PRN (15:15)
[2017-04-22] MEDS ORDERED: TRAMADOL HCL 50 MG TAB PO PRN (15:15)
[2017-04-22] MEDS ORDERED: MAGNESIUM HYDROXIDE SUSP 30 ML UDC PO PRN (15:15)
[2017-04-22] MEDS ORDERED: ACETAMINOPHEN 325 MG TAB PO PRN (15:15)
[2017-04-22] MEDS ORDERED: MoRPHine SULFATE 2 MG/ML CARP IV PRN (15:15)
[2017-04-22] MEDS ORDERED: POLYETHYLENE (MIRALAX) 17 GM PACK PO PRN (15:15)
[2017-04-22] MEDS ORDERED: ONDANSETRON INJ 2 MG/ML 2 ML VIAL IV PRN (15:15)
[2017-04-22] MEDS ORDERED: NITROGLYCERIN 0.4 MG SL PER TAB CHARGE SL PRN (15:15)
--- NOTE | 2017-04-22 15:40 | History and Physical ---
History & Physical Date & Time of Service: Apr 22, 2017 at 15:23 Chief Complaint: AMS Primary Care Physician: Sandeep Soni History of Present Illness Source: patient, clinic records, hospital records Patient is a pleasant 77 y/o male, with PMHx of dementia, CKD stage III, HTN, HLD, h/o TIA, seizure disorder, CAD s/p TX, anemia, and GERD, who presented to the ED from [facility] dementia unit for AMS and a fall yesterday. Patient was seen on 04/21 in [facility] ED for L shoulder pain s/p fall. He was found to have acute moderately displaced markedly comminuted impacted left humeral neck fracture which extends into the left humeral head seen on upper extremity CT. He was discharged back to [facility] and recommended to f/u with orthopedic surgery. He presents today due to AMS per [facility]. Patient is demented- unsure of baseline- unable to obtain history/ROS from patient. Past Medical/Surgical History Medical Problems: dementia CKD stage III HTN HLD h/o TIA seizure disorder CAD s/p TX anemia GERD Family History Patient reports no known family medical history. Social History Smoking Status: Unknown if Ever Smoked Housing status: detention ([facility] ) Occupational Status: retired Allergies Coded Allergies: No Known Allergies (Unverified , 04/22/17) Home Medications Scheduled Amlodipine (Norvasc), 5 MG PO DAILY Carvedilol (Coreg), 6.25 MG PO BID Cholecalciferol (Vitamin D3), 2,000 UNITS PO DAILY Citalopram Hydrobromide (Celexa), 10 MG PO QPM Finasteride (Proscar), 5 MG PO QAM Levetiracetam (Keppra), 500 MG PO BID Levetiracetam (Keppra), 250 MG PO DAILY@ 1230 Lisinopril (Prinivil), 5 MG PO DAILY Ocuvite Preservision (Ocuvite Preservision), 1 TAB PO DAILY Omeprazole (Prilosec), 20 MG PO DAILY Sennosides-Docusate Sodium (Senna Plus), 2 TABS PO BID Simvastatin (Zocor), 20 MG PO QPM Scheduled PRN Acetaminophen (Tylenol), 650 MG PO Q6 PRN for Pain Tramadol (Ultram), 1-2 TAB PO Q6 PRN for Pain Physical Exam Vital Signs Date Time Temp Pulse Resp B/P (MAP) Pulse Ox O2 Delivery O2 Flow Rate FiO2 04/22/17 13:47 77 111/56 78 107/72 04/22/17 13:11 94 Room Air 04/22/17 13:11 94 Room Air 04/22/17 12:56 36.7 75 23 103/66 96 Room Air 04/22/17 12:49 75 General Appearance: no apparent distress Head: normocephalic, atraumatic Eyes: normal inspection, PERRL ENT: hearing grossly normal Neck: supple Respiratory/Chest: lungs clear, no respiratory distress, no accessory muscle use Cardiovascular: regular rate, rhythm, + systolic murmur Abdomen/GI: normal bowel sounds, non tender, soft Extremities/Musculoskelatal: no calf tenderness, no pedal edema, + pertinent finding (L upper extremity w/ siginficant bruising/edema to shoulder region) Neurologic/Psych: alert, + disoriented Skin: normal color, warm/dry, no rash Diagnostics Laboratory Results Results Past 24 Hours Test 04/22/17 13:16 04/22/17 13:20 04/22/17 13:45 Range/Units Bedside Glucose 188 70-99 mg/dl Urine Color DK YELLOW Urine Appearance CLOUDY CLEAR Urine pH 5.0 4.5-7.5 Urine Specific [place] 1.029 1.000-1.030 Urine Protein TRACE NEG Urine Glucose (UA) NEG NEG Urine Ketones TRACE NEG Urine Occult Blood NEG NEG Urine Nitrite NEG NEG Urine Bilirubin NEG NEG Urine Urobilinogen NEG NEG Urine Leukocyte Esterase TRACE NEG Urine WBC (Auto) 1-5 0-5 /hpf Urine RBC (Auto) 0-4 0-4 /hpf Urine Hyaline Casts (Auto) 1-5 0-5 /lpf Urine Epithelial Cells (Auto) >30 0-5 /lpf Urine Bacteria (Auto) NEG NEG Urine Renal Epithelial Cells 0-5 /lpf Urine Crystals AMORPHOUS SEDIMENT NONE PRSENT Urine Pathogenic Casts 0 /lpf Urine Mucus PRESENT NONE PRSENT Urine Opiates Screen NEG NEG Urine Methadone, Qualitative NEG NEG Urine Barbiturates NEG NEG Urine Phencyclidine (PCP) Level NEG NEG Ur Amphetamine/Methamphetamine NEG NEG MDMA (Ecstasy) Screen NEG NEG Urine Benzodiazepines Screen NEG NEG Urine Cocaine Metabolite NEG NEG Urine Marijuana (THC) NEG NEG White Blood Count 10.48 4.8-10.8 K/uL Red Blood Count 3.55 4.7-6.1 M/uL Hemoglobin 9.7 14.0-18.0 g/dL Hematocrit 31.1 42-52 % Mean Corpuscular Volume 87.6 80-100 fL Mean Corpuscular Hemoglobin 27.3 25-34 pg Mean Corpuscular Hemoglobin Concent 31.2 32-36 g/dl Platelet Count 239 130-400 K/uL Mean Platelet Volume 11.6 7.4-10.4 fL Neutrophils (%) (Auto) 78.2 % Lymphocytes (%) (Auto) 5.5 % Monocytes (%) (Auto) 15.9 % Eosinophils (%) (Auto) 0.0 % Basophils (%) (Auto) 0.1 % Neutrophils # (Auto) 8.19 1.4-6.5 K/uL Lymphocytes # (Auto) 0.58 1.2-3.4 K/uL Monocytes # (Auto) 1.67 0.11-0.59 K/uL Eosinophils # (Auto) 0.00 0-0.5 K/uL Basophils # (Auto) 0.01 0-0.2 K/uL RDW Standard Deviation 50.4 36.4-46.3 fL RDW Coefficient of Variation 15.7 11.5-14.5 % Immature Granulocyte % (Auto) 0.3 % Immature Granulocyte # (Auto) 0.03 0.00-0.02 K/uL Prothrombin Time 10.4 9.0-12.0 SECONDS Prothromb Time International Ratio 1.0 0.9-1.1 Activated Partial Thromboplast Time 22.2 21.0-31.0 SECONDS Partial Thromboplastin Ratio 0.9 Sodium Level 143 136-145 mmol/L Potassium Level 4.8 3.5-5.1 mmol/L Chloride Level 114 98-107 mmol/L Carbon Dioxide Level 23 21-32 mmol/L Anion Gap 6.0 3-11 mmol/L Blood Urea Nitrogen 37 7-18 mg/dl Creatinine 2.59 0.60-1.40 mg/dl Est Creatinine Clear Calc Drug Dose 25.0 ml/min Estimated GFR () 26.5 Estimated GFR (Non- 22.9 BUN/Creatinine Ratio 14.4 10-20 Random Glucose 144 70-99 mg/dl Calcium Level 10.4 8.5-10.1 mg/dl Magnesium Level 2.5 1.8-2.4 mg/dl Total Bilirubin 1.0 0.2-1 mg/dl Direct Bilirubin 0.2 0-0.2 mg/dl Aspartate Amino Transf (AST/SGOT) 28 15-37 U/L Alanine Aminotransferase (ALT/SGPT) 24 12-78 U/L Alkaline Phosphatase 92 45-117 U/L Total Creatine Kinase 392 39-308 U/L Creatine Kinase MB 6.1 0.5-3.6 ng/ml Creatine Kinase MB Ratio 1.6 0-3.0 Troponin I 0.018 0-0.045 ng/ml Total Protein 7.0 6.4-8.2 gm/dl Albumin 3.1 3.4-5.0 gm/dl Thyroid Stimulating Hormone (TSH) 1.690 0.300-4.500 uIu/ml Diagnostic Radiology HEAD WITHOUT CONTRAST (CT) CLINICAL HISTORY: 77 years-old Male presenting with EVALUATE ALTERED MENTAL STATUS/WEAKNESS. TECHNIQUE: Multidetector CT imaging of the head was performed without the use of intravenous contrast. IV contrast: None. A dose lowering technique was used consistent with the principles of ALARA (as low as reasonably achievable). COMPARISON: 04/21/2017. CT DOSE (mGy.cm): The estimated cumulative dose is 1074.96 mGy.cm. FINDINGS: Tape Folding Machine Operator topogram: Unremarkable. Proportional ventricular and sulcal prominence, likely age-related parenchymal volume loss. Periventricular and subcortical white matter hypoattenuation, nonspecific but likely indicative of chronic small vessel ischemic change. Cystic encephalomalacia and gliosis extensively within the right temporal lobe extending into the right parietal lobe consistent with chronic right MCA territory infarct, unchanged from prior. No mass effect or midline shift. No hemorrhage or acute territorial infarct. No extra-axial fluid collection. Paranasal sinuses and mastoid air cells clear. Calvarium intact. IMPRESSION: 1. No significant change compared to the prior study. No acute intracranial abnormality. Electronically signed by: Bala Armando M.D. 04/22/2017 2:11 PM Dictated Date/Time: 04/22/2017 2:05 PM The status of this report is Signed. Draft = Not yet reviewed or approved by Radiologist. Signed = Reviewed and approved by Radiologist. SINGLE VIEW CHEST CLINICAL HISTORY: Weakness. Change in mental status. FINDINGS: An AP, portable, upright chest radiograph is obtained. No prior studies are available for comparison at the time of dictation. The examination is degraded by portable technique and patient rotation. The heart is enlarged. The pulmonary vasculature is noncongested. There are low lung volumes with bibasilar atelectasis. The lungs and pleural spaces are otherwise clear. No pneumothorax is seen. The skeletal structures are osteopenic. Advanced arthritic change is present in the shoulders. There is an impacted left humeral neck fracture. There are healed right posterior rib fractures. IMPRESSION: 1. Cardiomegaly with no acute cardiopulmonary abnormality. 2. Low lung volumes. 3. There is an impacted fracture of the left humeral neck. Electronically signed by: Darion Manjarrez M.D. 04/22/2017 1:43 PM Dictated Date/Time: 04/22/2017 1:42 PM The status of this report is Signed. Draft = Not yet reviewed or approved by Radiologist. Signed = Reviewed and approved by Radiologist. EKG MISAEL LOVELACE ID:[id number] 22-APR-2017 13:03:47 [facility] Normal sinus rhythm Cannot rule out Inferior infarct (cited on or before 08-JUL-2016) Anteroseptal infarct (cited on or before 08-JUL-2016) ST & T wave abnormality, consider lateral ischemia Abnormal ECG When compared with ECG of 08-JUL-2016 01:09, Questionable change in initial forces of Septal leads 25mm/s 10mm/mV 150Hz 8.0 SP2 12SL 241 PERRI: 10 Referred by: Unconfirmed Vent. rate 75 BPM DC interval 146 ms QRS duration 96 ms QT/QTc 394/439 ms P-R-T axes 36 26 107 1940 (77 yr) Male Room: Loc:15 Osteopathic Medicine Teacher:CRISTIANE Darby ind: Impression Assessment and Plan Patient is a pleasant 77 y/o male, with PMHx of dementia, CKD stage III, HTN, HLD, h/o TIA, seizure disorder, CAD s/p TX, anemia, and GERD, who presented to the ED from [facility] dementia unit for AMS and a fall yesterday. L shoulder fracture s/p fall, AMS: - Admit to tele for cardiac monitoring - Cardiac enzymes negative x1- will repeat once more - EKG w/ ST abnormalities; repeat QAM and PRN for chest pain - Mildly elevated CPK- repeat tomorrow AM - Pain control w/ Tylenol and Tramadol - Head CT unremarkable - Consult orthopedics, appreciate recommendations TANIA on CKD stage III- baseline tare worker 1.0, likely secondary to dehydration: - IV NSS @ 80 ml/hr- received 1 bolus in ED - Follow PRP - Hold Lisinopril Acute on chronic anemia- baseline hgb 11.0: Follow CBC HTN: - Continue Norvasc 5 mg daily, Coreg 6.25 BID - Hold Lisinopril secondary to TANIA - Hydralazine IV PRN HLD, h/o TIA: Continue Zocor 20 mg HS Seizure disorder: Keppra 250 mg afternoon and 500 mg BID BPH: Continue Finasteride 5 mg daily Dementia w/out behavioral disturbances: Continue Celexa 10 mg HS GERD: Protonix daily- resume Prilosec at discharge DVT prophylaxis: Hold chemical anticoagulation due to anemia Code Status: LEVEL V, DNR Dispo: From [facility]- consulted Resident Physician Supervision Note: Pt evaluated independently. I discussed the case with the PA and agree with the plan and plan as documented in the note. Any exceptions or clarifications are listed here: 77 y/o M Hx dementia, HTN, HPL, seizures - presented with a fall onto his L shoulder having sustained a fracture one day prior. He has apparently become increasingly confused and was sent in from his NH for this reason. The pt is unable to contribute to the history to his dementia and has no complaints. Initial labs were concerning for acute anemia - likely explained by a large hematoma, in addition to TANIA. OE AAO x 1 S1,2 R CTA - poor effort NT, ND No CCE Hematoma - L shoulder area P: Pts confusion may be multifactorial - possibly due to dehydration and pain Placed on IVF and pain control We will trend his HB and provide PRBCs if needed although there does not appear to be any active bleeding BMP will be trended as we provide IVF to correct renal function Documented By: David Jacob Level of Care Telemetry Resuscitation Status DO NOT RESUSCITATE VTE Prophylaxis VTE Risk Assessment Done? Y/N: Yes Risk Level: Moderate Given or contraindicated: T.E.D. Stockings, SCD's, Contraindicated
[2017-04-22] MEDS ORDERED: HydrALAZINE HCL 20 MG/ML VIAL IV. PRN (15:45)
[2017-04-22 16:45] VITALS: BP 124/60; PULSE 65; TEMP 37; O2SAT 94; Ht 167.6 cm; Wt 80.5 kg
--- NOTE | 2017-04-22 16:45 | NUR ---
Patient admitted to room 242-1. unable to communicate appropriately, screams to any verbal stimuli. vital signs stable. unable to get code word established and fall agreement established. bed alarm on. room outside of nursing station. will continue to monitor. see emr for full assessment.
[2017-04-22] MEDS: SODIUM CHLORIDE 0.9% 1000ML 1,000 ML IV SCH (17:00)
--- NOTE | 2017-04-22 17:30 | NUR ---
Patient a little more alert and verbal, still not making much sense in conversation, patient given sip of water tolerated well.
--- NOTE | 2017-04-22 17:45 | NUR ---
luis at bedside. updated on patient status and plan of care. luis reports patient responding to questions with sayings like " keep your eyes on the road" and "its a good day not a bad day" are patients baseline mentation. Luis also reports patient can be a "free spirit" and often tries to leave once feeling better, she took his clothes home to wash them
[2017-04-22] MEDS ORDERED: INFLUENZA ADMINISTRATION CHARGE ONE (18:15)
[2017-04-22] MEDS ORDERED: INFLUENZA VIRUS QUAD VACCINE 0.5 ML SYR IM. ONE (18:15)
[2017-04-22] MEDS ORDERED: PNEUMOCOCCAL POLYSACCHARIDES 25 MCG/0.5 ML VIAL/SYR IM. ONE (18:15)
[2017-04-22] MEDS ORDERED: PNEUMOCOCCAL ADMINISTRATION CHARGE ONE (18:15)
[2017-04-22 19:35] VITALS: BP 126/63; PULSE 78; TEMP 36.6; O2SAT 94
--- NOTE | 2017-04-22 19:48 | NUR ---
A: Pt found lyinh in bed with all his clothing off and yelling. He is alert to person only. Pt's left arm was noted to be ecchymotic and swollen and extremely painful. Pt yells out with the slightest of touch. Pt is currently a 1:1. VS were found to be WNL and PT is NSR in the 70-80's. See EMR for further documentation. Pt will continue to be monitored.
[2017-04-22 20:00] VITALS: O2SAT 94
[2017-04-22] MEDS ORDERED: LEVETIRACETAM 500 MG TAB PO SCH (21:00)
[2017-04-22] MEDS: DOCUSATE SODIUM/SENNA 50/8.6MG TAB PO SCH (21:00)
[2017-04-22] MEDS ORDERED: SIMVASTATIN 20 MG TAB PO SCH (21:00)
[2017-04-22] MEDS ORDERED: CITALOPRAM 20 MG TAB PO SCH (21:00)
[2017-04-22] MEDS: CARVEDILOL 6.25 MG TAB PO SCH (21:00)
--- NOTE | 2017-04-22 21:37 | ORTHOPEDIC CONSULTATION ---
DATE OF CONSULTATION: 04/22/2017 REASON FOR CONSULTATION: This is a 77-year-old gentleman seen at the request of Dr. Jacob and Dr. Sunny Cummings, due to left proximal humerus fracture. HISTORY OF PRESENT ILLNESS: Apparently, this a 77-year-old gentleman with past medical history of ongoing dementia, CKD stage III, hypertension, hyperlipidemia; history of TIAs, acutely and remotely as well as seizure disorder, coronary artery disease, status post LA, anemia and reflux who presented to [facility] from the [facility] after he sustained a fall yesterday. The patient was seen on April 21 in the Emergency Department for left shoulder pain and was noted to have an acute moderately displaced markedly comminuted impacted left humeral neck fracture which extends near head and CT scans were performed to confirm. He was given instruction to follow up as an outpatient for management; however, developed mental status changes and then presented back to [facility] earlier today on the medical service. Orthopedics was consulted once again. PAST MEDICAL HISTORY: Dementia, CKD stage III, hypertension, hyperlipidemia, history of TIA, seizure disorder, CAD status post LA, anemia, and reflux. PAST SURGICAL HISTORY: Noncontributory. ALLERGIES: No known drug allergies. MEDICATIONS: Norvasc, Coreg, vitamin D3, Celexa, Proscar, Keppra, Prinivil, Ocuvite, PreserVision, Prilosec, senna plus, Zocor, Tylenol and Ultram. Please refer to the medical record for new medications upon this admission. SOCIAL HISTORY: No significant tobacco use, no significant alcohol use, no drug use. He lives at [facility] for the last several years. He is retired. Work status - unknown. PHYSICAL EXAMINATION: GENERAL: This is a 77-year-old gentleman who is somnolent, lying supine in his hospital bed, he is on a one-to-one supervision due to agitation earlier this afternoon. Difficult to arouse, some unintelligible speech. HEENT: He has a right facial droop, which was noted by nursing staff, who has been a permanent teacher from prior stroke activity, remotely. EXTREMITIES: On examination of the left upper extremity, he was noted to have - skin was warm, dry and intact. Cap refill less than 2 seconds. Radial pulses 2/4. He has significant ecchymosis and bruising and swelling over the left proximal humerus and shoulder. He has ecchymosis that extends into the axilla and then down the left chest wall. He has some discomfort with palpation around the left proximal humerus. All history is obtained from nursing staff present. IMAGING DATA: Radiographs and CT scan reviewed demonstrating a severely comminuted, displaced and impacted left proximal humerus fracture with multiple fragments. No significant damage to the glenoid, acutely; however, there are findings consistent with ongoing degenerative arthritis of the left shoulder joint with marginal osteophytes, sclerosis, and subchondral cyst formation. There is complete loss of joint space. This is an acute on chronic issue. IMPRESSION: Left proximal humerus fracture with comminution and displacement with impaction. 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 RECOMMENDATIONS: No acute care at this time due to other superseding neurologic and medical issues. Sling for comfort. Will follow with you until final determination is made about his stability for surgery during this hospital stay. May need to be further stabilized and follow up as an outpatient for staging of either hemiarthroplasty or reverse total shoulder arthroplasty. Thank you for the opportunity to consult in the care of this patient. JUAN
[2017-04-22 22:02] LABS: CKMB 6.2 ng/ml (0.5-3.6)
--- NOTE | 2017-04-22 22:14 | NUR ---
A: nurse was unable to give PT PO medication at this time d/t pt's confusion. Nurse has tried several times to give medication but Pt becomes combative and starts screaming for the nurse to leave him alone. Pt grabbed nurses arm when trying to give him medication and squeezed it. Dr Herron was notified of inability to give mediations especially Keppra and Coreg.
[2017-04-22] MEDS: LEVETIRACTAM 500 MG in DEXTROSE 5% 100ML IV SCH (22:38)
[2017-04-22 23:39] VITALS: BP 133/66; PULSE 78; TEMP 37.2; O2SAT 96
--- NOTE | 2017-04-22 23:55 | NUR ---
A: No change in assessment Pt sleeping soundly awakening only to verbal and tactile stimuli. VS continue to be WNL and Pt remains in a NSR in the 70's. Left arm propped on pillow. See EMR for further documentation. Pt will continue to be monitored.
[2017-04-23] VITALS: O2SAT 96
[2017-04-23 04:00] VITALS: BP 130/60; PULSE 78; TEMP 36.9; O2SAT 94
--- NOTE | 2017-04-23 04:00 | NUR ---
A: No change in assessment Pt awoke from his sleep and is much more alert, although still confused. VS continue to be WNL and Pt remains in a NSR in the 70's. Left arm propped on pillow. Pt given Ultram for pain. See EMR for further documentation. Pt will continue to be monitored.
[2017-04-23 06:15] LABS: HEMATOCRIT 26.8 % (42-52); HEMOGLOBIN 8.4 g/dL (14.0-18.0); MEAN CELL VOLUME 88.4 fL (80-100); MEAN CORPUSCULAR HEMOGLOBIN 27.7 pg (25-34); MEAN CORPUSCULAR HGB CONC 31.3 g/dl (32-36); MEAN PLATELET VOLUME 11.4 fL (7.4-10.4); PLATELET COUNT 200 K/uL (130-400); RED CELL DISTRIBUTION WIDTH CV 16.2 % (11.5-14.5); RED CELL DISTRIBUTION WIDTH SD 51.9 fL (36.4-46.3); WHITE BLOOD COUNT 8.86 K/uL (4.8-10.8)
[2017-04-23 06:50] LABS: CALCIUM 9.7 mg/dl (8.5-10.1); CREATININE 1.15 mg/dl (0.60-1.40); POTASSIUM 4.2 mmol/L (3.5-5.1)
[2017-04-23] MEDS: SODIUM CHLORIDE 0.9% 1000ML 1,000 ML IV SCH (06:53)
[2017-04-23 07:45] VITALS: BP 118/60; PULSE 80; TEMP 36.7; O2SAT 96
--- NOTE | 2017-04-23 08:00 | NUR ---
A: Nursing assessment complete and documented in emr. Alert and only oriented to self. Denies pain and sob. VS WNL. SR per tele. Lungs dim but clear. IVF infusing without difficulty. No complaints or s/s of acute distress noted at this time. Call jurado within reach. Will continue to monitor. See emr for full assessment data.
[2017-04-23] MEDS: LEVETIRACTAM 500 MG in DEXTROSE 5% 100ML IV SCH (08:19)
[2017-04-23] MEDS: CARVEDILOL 6.25 MG TAB PO SCH (08:22)
[2017-04-23] MEDS ORDERED: LISINOPRIL 5 MG TAB PO SCH (09:00)
[2017-04-23] MEDS ORDERED: CEROVITE ADV FORMULA TAB PO SCH (09:00)
[2017-04-23] MEDS ORDERED: FINASTERIDE 5 MG TAB PO SCH (09:00)
[2017-04-23] MEDS: DOCUSATE SODIUM/SENNA 50/8.6MG TAB PO SCH (09:00)
[2017-04-23] MEDS ORDERED: PANTOprazole SOD 40 MG TAB PO SCH (09:00)
[2017-04-23] MEDS ORDERED: AMLODIPINE BESYLATE 5 MG TAB PO SCH (09:00)
[2017-04-23 11:23] VITALS: BP 91/55; PULSE 73; TEMP 36.7; O2SAT 94
--- NOTE | 2017-04-23 12:00 | NUR ---
A: Assessment complete and documented. VS WNL. Denies pain and sob. No acute mental status changes noted. SR per tele. Lungs dim. No s/s of acute distress noted. Call jurado within reach. Will continue to monitor. SEe emr.
[2017-04-23] MEDS ORDERED: LEVETIRACETAM 250 MG TAB PO SCH (12:30)
[2017-04-23] MEDS ORDERED: LEVETIRACETAM IV 250 MG in DEXTROSE 5% 100ML 100 ML IV SCH (12:30)
--- NOTE | 2017-04-23 12:34 | NUR ---
Case Management: Pt on screening tool as living in care home - [facility]. Met with pt this am at 0904 and spoke with him but he is not oriented. I did call Shelly Walsh and spoke with her via cell [phone] ([phone] is no longer a valid #). Shelly is pt's niece and POA. She does confirm the plan is for pt to return to [facility]. Nataliia Mitchell is another niece but not POA. Per pt's demographics he has Medicare and Medicaid which means the bed at [facility] will be held for pt for 15 days. CM will cont to follow.
[2017-04-23 14:54] VITALS: BP 136/68; PULSE 75; TEMP 36.5; O2SAT 93
[2017-04-23] MEDS ORDERED: ACET-1311 PO (15:12)
--- NOTE | 2017-04-23 15:23 | Discharge Instructions ---
Discharge Instructions Date of Service Apr 23, 2017. Admission Reason for Admission: Acute kidney injury,altered mental status Discharge Discharge Diagnosis / Problem: TANIA,AMS Discharge Goals Goal(s): Improve disease control, Therapeutic intervention Activity Recommendations Activity Level: Assistance Required Therapies: Occupational Therapy Keep left upper extremity in shoulder sling for comfort, can remove while seated to allow elbow to stretch out. . Additional Information Patient informed of condition: Yes Advance Directives: No DNR: Yes Level of Care: Other (Fdc) Communicable Disease: No Prognosis: Stable Oxygen at (LPM): N/A Mendoza Catheter: No Instructions / Follow-Up Instructions / Follow-Up Admitted with altered mental status could be secondary to pain medication, pain itself, or dehydration. He had renal failure on admission which quickly resolved with IVFs. He was completely back to baseline as per his niece that visited. Has baseline dementia. His hgb is decreased to 8.4 likely from hematoma and some hemodilutional effect from IV hydration overnight. Would recommend checking CBC in 2-3 days. Follow up with Orthopedics as scheduled in 2 weeks. Would recommend no opioid medications to include tramadol. Tylenol or ibuprofen only for pain. Current Hospital Diet Patient's current hospital diet: AHA Diet (Heart Healthy) Discharge Diet Recommended Diet: AHA Diet (Heart Healthy) Procedures Procedures Performed: Chest xray Head CT Pending Studies Studies pending at discharge: no Physician Orders On Transfer Special Precautions: Left arm in sling Vital Signs: Routine Weigh: Routine Laboratory Results Last 24 Hours Test 04/22/17 21:28 04/23/17 05:28 04/23/17 09:09 Creatine Kinase MB 6.2 ng/ml Creatine Kinase MB Ratio Troponin I 0.025 ng/ml 0.017 ng/ml White Blood Count 8.86 K/uL Red Blood Count 3.03 M/uL Hemoglobin 8.4 g/dL Hematocrit 26.8 % Mean Corpuscular Volume 88.4 fL Mean Corpuscular Hemoglobin 27.7 pg Mean Corpuscular Hemoglobin Concent 31.3 g/dl RDW Standard Deviation 51.9 fL RDW Coefficient of Variation 16.2 % Platelet Count 200 K/uL Mean Platelet Volume 11.4 fL Sodium Level 145 mmol/L Potassium Level 4.2 mmol/L Chloride Level 116 mmol/L Carbon Dioxide Level 25 mmol/L Anion Gap 4.0 mmol/L Blood Urea Nitrogen 32 mg/dl Creatinine 1.15 mg/dl Est Creatinine Clear Calc Drug Dose 53.6 ml/min Estimated GFR () 70.7 Estimated GFR (Non- 61.0 BUN/Creatinine Ratio 28.1 Random Glucose 110 mg/dl Calcium Level 9.7 mg/dl Total Creatine Kinase 207 U/L Medical Emergencies . Who to Call and When: Medical Emergencies: If at any time you feel your situation is an emergency, please call 911 immediately. . Non-Emergent Contact Non-Emergency issues call your: Primary Care Provider, Surgeon Call Non-Emergent contact if: your pain is not controlled, your pain is worsening, your pain is unusual for you, your pain is concerning you, you have any medication questions . . "Provider Documentation" section prepared by Alessandra Godfrey. . Core Measure Problem Core Measures: None
--- NOTE | 2017-04-23 15:25 | Orthopedic Progress Note ---
Orthopedic Progress Note Date of Service Apr 23, 2017. Subjective Denies: complaints, chest pain, SOB, nausea / vomiting, light headedness Additional Notes: More alert and talkative though speech is nonsensical and at times agitated. No complaints of left shoulder pain though poor historian. Objective calves soft nontender, N/V intact, capillary refill less than 2 sec. Left shoulder ecchymosis. Skin W/D/I. Radial pulse 2/4 B UE. +TTP left proximal humerus. Limited AROM/PROM left UE due to pain. Date Time Temp Pulse Resp B/P (MAP) Pulse Ox O2 Delivery O2 Flow Rate FiO2 04/23/17 14:54 36.5 75 18 136/68 (90) 93 Room Air 04/23/17 12:00 Room Air 04/23/17 11:23 36.7 73 16 91/55 (67) 94 04/23/17 08:00 Room Air 04/23/17 07:45 36.7 80 18 118/60 (79) 96 04/23/17 04:00 94 Room Air 04/23/17 04:00 36.9 78 130/60 (83) 94 Room Air 04/23/17 00:00 96 Room Air 04/22/17 23:39 37.2 78 22 133/66 (88) 96 Room Air 04/22/17 20:00 94 Room Air 04/22/17 19:35 36.6 78 20 126/63 (84) 94 Room Air 04/22/17 16:45 37.0 65 18 124/60 94 Room Air 04/22/17 16:11 83 119/59 96 Laboratory Results 24 Hours: Test 04/23/17 05:28 Hematocrit 26.8 % Hemoglobin 8.4 g/dL Assessment & Plan Assessment: Left comminuted and displaced proximal humerus fracture with preexisting severe DJD. Severe dementia Plan: Sling L UE Ice for comfort May be candidate for hemiarthroplasty vs reverse TSA depending upon rotator cuff function F/U with Dr Brock as outpatient.
--- NOTE | 2017-04-23 16:00 | NUR ---
A: Assessment complete and documented. VS WNL. Denies pain and sob. SR per tele. Lungs dim. No s/s of acute distress noted. Call jurado within reach. Will continue to monitor. See emr.
--- NOTE | 2017-04-23 16:15 | NUR ---
Case Management: This pt is a potential discharge for today per nurse Sunny. I have contacted admissions to see if we can get a litter van and also left a message for [facility]'s admission coordinator to give her a heads up. Notified that our Medics will transport pt between [id number] today. I notified the unit.
[2017-04-23 16:40] VITALS: BP 136/68; PULSE 75; TEMP 36.5; O2SAT 93
--- NOTE | 2017-04-23 17:36 | NUR ---
Report called to Tamie at [facility]
--- NOTE | 2017-04-23 17:42 | Discharge Summary ---
Discharge Summary Date of Service Apr 23, 2017. 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 Carvedilol (Coreg) 6.25 Mg Tab 6.25 MG PO BID, TAB Cholecalciferol (Vitamin D3) 2,000 Unit Cap 2000 UNITS PO DAILY Citalopram Hydrobromide (Celexa) 10 Mg Tab 10 MG PO QPM, TAB Finasteride (Proscar) 5 Mg Tab 5 MG PO QAM, TAB Levetiracetam (Keppra) 500 Mg Tab 500 MG PO BID GIVE AT 0830 & 1630 Levetiracetam (Keppra) 250 Mg Tab 250 MG PO DAILY@ 1230, TAB Lisinopril (Prinivil) 5 Mg Tab 5 MG PO DAILY, TAB HOLD FOR SBP < 100. Ocuvite Preservision (Ocuvite Preservision) 1 Tab Tab 1 TAB PO DAILY Omeprazole (Prilosec) 20 Mg Capcr 20 MG PO DAILY MAY OPEN CAPSULE AND SPRINKLE ONTO APPLESAUCE..DO NOT CRUSH CAPSULE Sennosides-Docusate Sodium (Senna Plus) 1 Tab Tab 2 TABS PO BID HOLD FOR LOOSE BM'S Simvastatin (Zocor) 20 Mg Tab 20 MG PO QPM GIVE AT 1630 Discontinued Medications: Tramadol (Ultram) 50 Mg Tab 1-2 TAB PO Q6 PRN for Pain, TAB Discharge Exam As per pt's niece who visited him today, he is completely back to his baseline mental status. Pt can tell me his name, but then starts repeating "Have a great day!" He does damit to pain in the left shoulder that he points to. Denies chest pain, no abd pain, no SOB. He had to have a Mendoza placed for bladder scan of 500 mL and was not willing to void in urinal. About 350 mL came out. Otherwise, no events on tele, troponins neg x 3, ECGs showed suspect ST elevations, but reviewed by Cardiology and myself-this is a chronic change on his ECGs. He was seen by [facility] here, but was actually seen by [facility] in the office as per [facility] records. Ortho here recommended sling for comfort and f/u with usual Ortho as outpt. ROS otherwise negative Review of Systems: Constitutional: No fever Respiratory: No shortness of breath Cardiovascular: No chest pain Abdomen: No pain Musculoskeletal: + joint pain Genitourinary - Male: + urinary retention Physical Exam: General Appearance: WD/WN, no apparent distress Eyes: normal inspection, sclerae normal ENT: hearing grossly normal Neck: trachea midline Respiratory/Chest: lungs clear, normal breath sounds, no respiratory distress, no accessory muscle use Cardiovascular: regular rate, rhythm, no edema, no gallop, no murmur Abdomen / GI: normal bowel sounds, non tender, soft Extremities: + pertinent finding (left shoulder and upper arm with large hematoma and edema traveling down to left forearm, +TTP over left proximal humerus) Neurologic/Psychiatric: alert, + disoriented Skin: no rash, + pertinent finding (ecchymosis covering entire left shoulder and upper arm, some into left forearm) Hospital Course Patient is a pleasant 77 y/o male, with PMHx of dementia, CKD stage III, HTN, HLD, h/o TIA, seizure disorder, CAD s/p VT, anemia, and GERD, who presented to the ED from [facility] dementia unit after he was not responding and had a recorded low blood pressure. He had a fall the day prior and had a significant fracture of the left proximal humerus. He was seen in the ER that day and then by Orthopedics as an outpatient the following day. On the day of admission, it appears he was started on tramadol for his left shoulder pain. Admitted with altered mental status could be secondary to pain medication, pain itself, or dehydration. CT head with no acute change, chest xray, CBC, and urinalysis without evidence of infection. He had renal failure on admission which quickly resolved with IVFs. Review of his records from [facility] show that he had an episode of metabolic encephalopathy in 2012 associated with TANIA. He was completely back to baseline as per his niece that visited by the next morning and his creatinine returned to normal. Has baseline dementia. His hgb is decreased to 8.4 likely from hematoma and some hemodilutional effect from IV hydration overnight. Would recommend checking CBC in 2-3 days. Follow up with Orthopedics as scheduled in 2 weeks. Would recommend no opioid medications to include tramadol. Tylenol or ibuprofen only for pain. Total Time Spent: Greater than 30 minutes This includes examination of the patient, discharge planning, medication reconciliation, and communication with other providers. Discharge Instructions Please refer to the electronic Patient Visit Report (Discharge Instructions) for additional information. Follow-Up Orthopedics in 2 weeks PCP at [facility] in 1-2 days Additional Copies To Sandeep Soni; Sunny Cummings M.D.
--- NOTE | 2017-04-23 18:50 | NUR ---
A: Pt d/c to [facility] with [facility] staff
== END 2017-04-23 18:51 | DRG 682 ==
LOC: EDBD 12:42 → C.EDC 12:43 → C.2T 15:22 → ENRESERV 15:57 → CANRESERV 15:57 → ENRESERV 15:58 → C.2T 19:07
PROVIDERS: ADMIT Internal Medicine; ATTEND Family Medicine
DX: N17.9 Acute kidney failure, unspecified (principal); G93.41 Metabolic encephalopathy; S42.212A Unspecified displaced fracture of surgical neck of left humerus, initial encounter for closed fracture; W19.XXXD Unspecified fall, subsequent encounter; N18.3 Chronic kidney disease, stage 3 (moderate); I12.9 Hypertensive chronic kidney disease with stage 1 through stage 4 chronic kidney disease, or unspecified chronic kidney disease; E78.5 Hyperlipidemia, unspecified; Z86.73 Personal history of transient ischemic attack (TIA), and cerebral infarction without residual deficits; I25.10 Atherosclerotic heart disease of native coronary artery without angina pectoris; I25.2 Old myocardial infarction; D64.9 Anemia, unspecified; K21.9 Gastro-esophageal reflux disease without esophagitis; Z66 Do not resuscitate

== ENCOUNTER → 2017-04-27 | Outpatient (CLI) | payer OTHER ==
[2017-04-27 09:26] LABS: HEMATOCRIT 28.5 % (42-52); HEMOGLOBIN 8.7 g/dL (14.0-18.0); MEAN CELL VOLUME 89.1 fL (80-100); MEAN CORPUSCULAR HEMOGLOBIN 27.2 pg (25-34); MEAN CORPUSCULAR HGB CONC 30.5 g/dl (32-36); MEAN PLATELET VOLUME 11.6 fL (7.4-10.4); PLATELET COUNT 264 K/uL (130-400); RED CELL DISTRIBUTION WIDTH SD 51.9 fL (36.4-46.3); WHITE BLOOD COUNT 6.72 K/uL (4.8-10.8)
[2017-04-27 09:56] LABS: BLOOD UREA NITROGEN 26 mg/dl (7-18); CALCIUM 10.4 mg/dl (8.5-10.1); CARBON DIOXIDE 22 mmol/L (21-32); CREATININE 0.95 mg/dl (0.60-1.40); GLUCOSE 116 mg/dl (70-99); POTASSIUM 4.4 mmol/L (3.5-5.1); SODIUM 140 mmol/L (136-145)
== END ==
LOC: C.LABCC 09:12
PROVIDERS: ATTEND Internal Medicine
DX: N17.9 Acute kidney failure, unspecified (principal); G40.909 Epilepsy, unspecified, not intractable, without status epilepticus

== ENCOUNTER → 2017-05-05 | Outpatient (CLI) | payer OTHER ==
[~2017-05-05] MED LIST changes: +AMLO-110 PO; -AMLO5TAB3 PO
[2017-05-05 08:18] LABS: HEMATOCRIT 31.6 % (42-52); HEMOGLOBIN 9.7 g/dL (14.0-18.0); MEAN CELL VOLUME 92.7 fL (80-100); MEAN CORPUSCULAR HEMOGLOBIN 28.4 pg (25-34); MEAN CORPUSCULAR HGB CONC 30.7 g/dl (32-36); PLATELET COUNT 286 K/uL (130-400); RED CELL DISTRIBUTION WIDTH CV 17.8 % (11.5-14.5); RED CELL DISTRIBUTION WIDTH SD 59.7 fL (36.4-46.3); WHITE BLOOD COUNT 8.01 K/uL (4.8-10.8)
[2017-05-05 08:30] LABS: BLOOD UREA NITROGEN 29 mg/dl (7-18); CALCIUM 10.8 mg/dl (8.5-10.1); CARBON DIOXIDE 25 mmol/L (21-32); GLUCOSE 119 mg/dl (70-99); POTASSIUM 4.7 mmol/L (3.5-5.1); SODIUM 141 mmol/L (136-145)
== END ==
LOC: C.LABCC 07:54
PROVIDERS: ATTEND Internal Medicine
DX: D64.9 Anemia, unspecified (principal)

== ENCOUNTER → 2017-05-06 | Outpatient (CLI) | payer OTHER | END | disposition home or self-care (01) | LOC: C.RDSM 13:00 | PROVIDERS: ATTEND Orthopaedic Surgery | DX: S49.92XA Unspecified injury of left shoulder and upper arm, initial encounter (principal); X58.XXXA Exposure to other specified factors, initial encounter ==

== ENCOUNTER → 2017-06-23 | Outpatient (CLI) | payer OTHER | LOC: C.LABCC 09:20 | PROVIDERS: ATTEND Internal Medicine | DX: E83.52 Hypercalcemia (principal) ==

== ENCOUNTER → 2017-07-06 | Outpatient (CLI) | payer OTHER | LOC: C.LABCC 09:54 | PROVIDERS: ATTEND Internal Medicine | DX: E83.52 Hypercalcemia (principal) ==

== ENCOUNTER → 2017-07-15 | Outpatient (CLI) | payer OTHER | LOC: C.LABCC 07:40 | PROVIDERS: ATTEND Internal Medicine | DX: E55.9 Vitamin D deficiency, unspecified (principal) ==

== ENCOUNTER → 2017-07-27 | Outpatient (CLI) | payer OTHER ==
[2017-07-27 09:57] LABS: BASO % 0.7 %; BASO ABS # 0.04 K/uL (0-0.2); EOS % 2.3 %; EOS ABS # 0.13 K/uL (0-0.5); HEMATOCRIT 36.6 % (42-52); HEMOGLOBIN 11.8 g/dL (14.0-18.0); LYMPH % 18.1 %; LYMPH ABS # 1.02 K/uL (1.2-3.4); MEAN CELL VOLUME 87.4 fL (80-100); MEAN CORPUSCULAR HEMOGLOBIN 28.2 pg (25-34); MEAN CORPUSCULAR HGB CONC 32.2 g/dl (32-36); MEAN PLATELET VOLUME 10.9 fL (7.4-10.4); MONO % 13.7 %; MONO ABS # 0.77 K/uL (0.11-0.59); NEUT % 65.2 %; NEUT ABS # 3.66 K/uL (1.4-6.5); PLATELET COUNT 239 K/uL (130-400); RED CELL DISTRIBUTION WIDTH SD 48.1 fL (36.4-46.3); WHITE BLOOD COUNT 5.62 K/uL (4.8-10.8)
== END ==
LOC: C.LABCC 09:23
PROVIDERS: ATTEND Internal Medicine
DX: I95.9 Hypotension, unspecified (principal); D64.9 Anemia, unspecified; E78.5 Hyperlipidemia, unspecified

== ENCOUNTER → 2017-08-15 | Outpatient (CLI) | payer OTHER ==
[2017-08-15 08:19] LABS: BLOOD UREA NITROGEN 22 mg/dl (7-18); CALCIUM 10.8 mg/dl (8.5-10.1); CARBON DIOXIDE 25 mmol/L (21-32); CREATININE 0.95 mg/dl (0.60-1.40); GLUCOSE 96 mg/dl (70-99); POTASSIUM 4.5 mmol/L (3.5-5.1); SODIUM 140 mmol/L (136-145)
== END ==
LOC: C.LABCC 07:40
PROVIDERS: ATTEND Internal Medicine
DX: E83.52 Hypercalcemia (principal)